=== PATIENT | female | born 1960 | race Caucasian/White ===

== ENCOUNTER 2018-07-08 12:14 | Emergency (ER) | payer OTHER ==
[2018-07-08 12:25] VITALS: BP 146/86; PULSE 61; TEMP 98.2; BMI 36.5
--- NOTE | 2018-07-08 13:25 | PDOC ---
History of Present Illness - General Chief Complaint: Nasal Bleeding Stated Complaint: NOSEBLEED Time Seen by Provider: 07/08/18 13:13 - History of Present Illness Initial Comments: 07/08/18 13:24 58-year-old female with past medical history significant for hypertension, she' s had a subarachnoid hemorrhage in the past. She takes daily aspirin presents for evaluation of nosebleed. She states she walked into a glass your nose began to bleed. She denies headache visual changes nausea or post injury vomiting. Past History - Past Medical History Allergies/Adverse Reactions: Allergies Allergy/AdvReac Type Severity Reaction Status Date / Time Iodinated Contrast- Oral and Allergy Intermediate "TURNS Verified 07/08/18 12:25 IV Dye PURPLE ALL OVER BODY" Penicillins Allergy Mild Rash Verified 07/08/18 12:25 Home Medications: Ambulatory Orders Nefazodone HCl 200 mg PO BID #0 tablet 10/23/12 Amlodipine Besylate [Norvasc -] 5 mg PO DAILY 07/08/18 Aspirin [ASA -] 81 mg PO DAILY 07/08/18 Metoprolol Succinate [Toprol Xl] 200 mg PO DAILY 07/08/18 Rosuvastatin [Crestor -] 5 mg PO DAILY 07/08/18 COPD: No Psychiatric Problems: Yes (ANXIETY,DEPRESSION.) Other medical history: SUBARACHNOID HEM. - Surgical History Neurologic Surgery: Yes - Suicide/Smoking/Psychosocial Hx Smoking Status: No Smoking History: Never smoked Number of Cigarettes Smoked Daily: 15 'Breaking Loose' booklet given: 10/22/12 Review of Systems - Review of Systems HEENTM: Yes: Nose Pain, Nose Bleeding *Physical Exam - Vital Signs Last Vital Signs Temp Pulse Resp BP Pulse Ox 98.2 F 61 18 146/86 98 07/08/18 12:21 07/08/18 12:21 07/08/18 12:21 07/08/18 12:21 07/08/18 12:21 - Physical Exam Comments: 07/08/18 13:25 HEAD: NC/AT EYES: Conjuntiva clear EOMI Ears: Canals and TM's normal NOSE: No d/c, tried blooded naris THROAT: Moist mucous membrances, oral pharanx clear, uvula midline NECK: Supple without adenopathy CARDIAC: S1 S2 LUNGS: CTA Full and Equal breath sounds ABDOMEN: Soft NT ND MS: Full ROM in all joints without edema NEUROLOGIC: No gross sensory or motor deficits, NVID SKIN: Normal color and temperature no lesions or rashes Moderate Sedation - Procedure Monitoring Vital Signs: Procedure Monitoring Vital Signs Temperature 98.2 F 07/08/18 12:21 Pulse Rate 61 07/08/18 12:21 Respiratory Rate 18 07/08/18 12:21 Blood Pressure 146/86 07/08/18 12:21 O2 Sat by Pulse Oximetry (%) 98 07/08/18 12:21 ED Treatment Course - RADIOLOGY Radiology Studies Ordered: Category Date Time Status FACIAL BONES CT W/O CONTRAST [CT] Stat CT Scan 07/08/18 13:[address] WITHOUT CONTRAST [CT] Stat CT Scan 07/08/18 13:23 Ordered *DC/Admit/Observation/Transfer Diagnosis at time of Disposition: Contusion of nose, Nasal bleeding - Discharge Dispostion Disposition: HOME Condition at time of disposition: Stable Decision to Admit order: No - Referrals Referrals: Oscar Villanueva MD, MD [Primary Care Provider] - - Patient Instructions Printed Discharge Instructions: DI for Nose Fracture Additional Instructions: Return to the emergency room should he have any further issues. Please follow up with her primary care physician one to 2 days for further evaluation and treatment options. The radiologist's comment on her CAT scan today was that he could not exclude a nondisplaced fracture. There is no obvious fracture on CAT scan today of your nose. He had CAT scan was normal and your shunt is in place. Follow-up with your primary care physician in one to 2 days and again return to the emergency room should he require any further treatment or have any further concerns. - Post Discharge Activity
== END 2018-07-08 14:16 | disposition home or self-care (01) ==
LOC: JERFT 12:14
DX: S00.33XA Contusion of nose, initial encounter (principal); W22.09XA Striking against other stationary object, initial encounter; Y93.89 Activity, other specified; Y92.89 Other specified places as the place of occurrence of the external cause; Y99.8 Other external cause status
CPT/HCPCS: 70450-TC; 70486-TC; 99281-25

== ENCOUNTER 2018-07-13 16:00 | Emergency (ER) | payer OTHER ==
--- NOTE | 2018-07-13 16:12 | PDOC ---
Rapid Medical Evaluation Time Seen by Provider: 07/13/18 16:10 Medical Evaluation: Allergies Allergy/AdvReac Type Severity Reaction Status Date / Time Iodinated Contrast- Oral and Allergy Intermediate "TURNS Verified 07/08/18 12:25 IV Dye PURPLE ALL OVER BODY" Penicillins Allergy Mild Rash Verified 07/08/18 12:25 07/13/18 16:10 I have performed a brief in-person evaluation of this patient. The patient presents with a chief complaint of: nose bleed s/p trauma few days ago, was seen in ER at that time. last dose ASA yesterday. history of brain bleed with shunt, feels weak and tired. Pertinent physical exam findings:no bleeding now I have ordered the following:none The patient will proceed to the ED for further evaluation. Discharge Disposition - Referrals Referrals: Oscar Villanueva MD, MD [Primary Care Provider] - - Patient Instructions - Post Discharge Activity
[2018-07-13 16:14] VITALS: BP 151/81; PULSE 73; TEMP 97.9; BMI 36.4
--- NOTE | 2018-07-13 17:05 | PDOC ---
History of Present Illness - General Chief Complaint: Nasal Bleeding Stated Complaint: NOSE BLEEDS Time Seen by Provider: 07/13/18 16:10 History Source: Patient Exam Limitations: No Limitations - History of Present Illness Initial Comments: 07/13/18 17:03 58-year-old female presents to ED with intermittent right nasal passage bleeding. Patient states ran into a glass door at a department store and was seen in the ER and had a normal facial CT. Patient states he is concerned with the intermittent bleeding and denies headache, dizziness, nausea or vomiting. Patient is currently on no anticoagulation therapy and denies clotting disorders. Timing/Duration: intermittent Severity: mild Associated Symptoms: reports: denies symptoms Past History - Travel Traveled outside of the country in the last 30 days: No - Past Medical History Allergies/Adverse Reactions: Allergies Allergy/AdvReac Type Severity Reaction Status Date / Time Iodinated Contrast- Oral and Allergy Intermediate "TURNS Verified 07/13/18 16:10 IV Dye PURPLE ALL OVER BODY" Penicillins Allergy Mild Rash Verified 07/13/18 16:10 Home Medications: Ambulatory Orders Nefazodone HCl 200 mg PO BID #0 tablet 10/23/12 Amlodipine Besylate [Norvasc -] 5 mg PO DAILY 07/08/18 Aspirin [ASA -] 81 mg PO DAILY 07/08/18 Metoprolol Succinate [Toprol Xl] 200 mg PO DAILY 07/08/18 Rosuvastatin [Crestor -] 5 mg PO DAILY 07/08/18 COPD: No Psychiatric Problems: Yes (ANXIETY,DEPRESSION.) - Surgical History Neurologic Surgery: Yes (ventricular shunt) - Suicide/Smoking/Psychosocial Hx Smoking Status: No Smoking History: Never smoked Number of Cigarettes Smoked Daily: 15 'Breaking Loose' booklet given: 10/22/12 Patient Lives Alone: No Lives with/in: spouse/SO Review of Systems - Review of Systems Able to Perform ROS?: Yes Constitutional: No: Symptoms Reported HEENTM: Yes: Nose Bleeding Respiratory: No: Symptoms reported Cardiac (ROS): No: Symptoms Reported *Physical Exam - Vital Signs Last Vital Signs Temp Pulse Resp BP Pulse Ox 97.9 F 73 18 151/81 97 07/13/18 16:12 07/13/18 16:12 07/13/18 16:12 07/13/18 16:12 07/13/18 16:12 - Physical Exam General Appearance: Yes: Nourished, Appropriately Dressed. No: Apparent Distress HEENT: positive: Pharynx Normal, Other (noted small superficial laceration to the floor the right nasal passage anteriorly) Integumentary: positive: Normal Color, Warm, Moist Neurologic: positive: Motor Strength 5/5 (ambulatory) Moderate Sedation - Procedure Monitoring Vital Signs: Procedure Monitoring Vital Signs Temperature 97.9 F 07/13/18 16:12 Pulse Rate 73 07/13/18 16:12 Respiratory Rate 18 07/13/18 16:12 Blood Pressure 151/81 07/13/18 16:12 O2 Sat by Pulse Oximetry (%) 97 07/13/18 16:12 Medical Decision Making - Medical Decision Making 07/13/18 17:04 Chief complaint: Intermittent right nasal bleeding since injury 5 days prior. Exam: noted small superficial laceration to the anterior aspect of right nasal passage floor. Plan: Rhino Rocket inserted without difficulty. Patient understands discharge instructions and to return in 48 hours for removal. *DC/Admit/Observation/Transfer Diagnosis at time of Disposition: Bleeding from the nose - Discharge Dispostion Disposition: HOME Condition at time of disposition: Improved - Referrals Referrals: Oscar Villanueva MD, MD [Primary Care Provider] - - Patient Instructions Printed Discharge Instructions: DI for Nosebleed Additional Instructions: Please return here for removal in 2 days and avoid coughing, sneezing, and nose blowing. - Post Discharge Activity
== END 2018-07-13 17:18 | disposition home or self-care (01) ==
LOC: JERFT 16:00
PROC: 2Y41X5Z Packing of Nasal Region using Packing Material (ICD-10-PCS; principal; 2018-07-13)
DX: R04.0 Epistaxis (principal); W22.8XXA Striking against or struck by other objects, initial encounter; Y93.89 Activity, other specified; Y92.512 Supermarket, store or market as the place of occurrence of the external cause; Y99.8 Other external cause status; I10 Essential (primary) hypertension; F41.8 Other specified anxiety disorders; Z86.79 Personal history of other diseases of the circulatory system; Z98.2 Presence of cerebrospinal fluid drainage device
CPT/HCPCS: 99281-25

== ENCOUNTER 2018-07-14 10:23 | Emergency (ER) | payer OTHER ==
[2018-07-14 10:38] VITALS: BP 114/67; PULSE 66; TEMP 97; BMI 38.0
--- NOTE | 2018-07-14 10:44 | PDOC ---
History of Present Illness - General Chief Complaint: Nasal Bleeding Stated Complaint: REVISIT INJURY Time Seen by Provider: 07/14/18 10:41 History Source: Patient - History of Present Illness Associated Symptoms: reports: weakness Past History - Past Medical History Allergies/Adverse Reactions: Allergies Allergy/AdvReac Type Severity Reaction Status Date / Time Iodinated Contrast- Oral and Allergy Intermediate "TURNS Verified 07/14/18 10:38 IV Dye PURPLE ALL OVER BODY" Penicillins Allergy Mild Rash Verified 07/14/18 10:38 Home Medications: Ambulatory Orders Nefazodone HCl 200 mg PO BID #0 tablet 10/23/12 Amlodipine Besylate [Norvasc -] 5 mg PO DAILY 07/08/18 Aspirin [ASA -] 81 mg PO DAILY 07/08/18 Metoprolol Succinate [Toprol Xl] 200 mg PO DAILY 07/08/18 Rosuvastatin [Crestor -] 5 mg PO DAILY 07/08/18 COPD: No Psychiatric Problems: Yes (ANXIETY,DEPRESSION.) - Surgical History Neurologic Surgery: Yes (ventricular shunt) - Suicide/Smoking/Psychosocial Hx Smoking Status: No Smoking History: Never smoked Number of Cigarettes Smoked Daily: 15 'Breaking Loose' booklet given: 10/22/12 Review of Systems - Review of Systems Constitutional: No: Fever HEENTM: Yes: Nose Bleeding. No: Nose Congestion Respiratory: No: Shortness of Breath Cardiac (ROS): No: Chest Pain ABD/GI: No: Nausea, Vomiting Neurological: No: Headache, Dizziness *Physical Exam - Vital Signs Last Vital Signs Temp Pulse Resp BP Pulse Ox 97 F L 66 18 114/67 98 07/14/18 10:35 07/14/18 10:35 07/14/18 10:35 07/14/18 10:35 07/14/18 10:35 - Physical Exam Comments: 07/14/18 10:58 gustavo mildly lethargic General Appearance: Yes: Appropriately Dressed HEENT: positive: Normal Voice, Other (1 blood clot to R nares, no active bleed, oropharynx clear) Neck: positive: Supple Respiratory/Chest: positive: Lungs Clear, Normal Breath Sounds. negative: Respiratory Distress Cardiovascular: positive: Regular Rate, S1, S2 Integumentary: positive: Dry, Warm Neurologic: positive: Fully Oriented, Alert, Normal Mood/Affect Moderate Sedation - Procedure Monitoring Vital Signs: Procedure Monitoring Vital Signs Temperature 97 F L 12/29/18 10:35 Pulse Rate 66 07/14/18 10:35 Respiratory Rate 18 07/14/18 10:35 Blood Pressure 114/67 07/14/18 10:35 O2 Sat by Pulse Oximetry (%) 98 07/14/18 10:35 ED Treatment Course - LABORATORY CBC & Chemistry Diagram: 07/14/18 11:00 Medical Decision Making - Medical Decision Making 07/14/18 10:43 58-year-old female, history of HTN, on aspirin, s/p subarachnoid hemorrhage in the past, anemia, here in the ED for the third time this week for nosebleed. Patient was seen in ED initially on 07/08, with right epistaxis after walking into a class. CT facial bones was read as cannot rule out non-displaced nasal bone fractures. Patient was discharged with PMD follow-up. Patient returned to ED yesterday for intermittent right epistaxis. Superficial laceration to anterior nasal passage was seen on exam and Rhino Rocket was placed. Patient states when she went home nasal packing fell out 2 hours later and that she did have some recurrent right epistaxis that resolved at some point, but returned this a.m. Bleeding has since resolved. Patient here because she is concerned about bleeding and currently complaining of generalized weakness. See exam Recurrent R epistaxis s/p facial injury 07/08 CT facial bones w/ ? non-displaced nasal bone fractures s/p rhionorocket placement yesterday in ED after lac to nasal passageway seen on exam Packing since fell out and had recurrent bleed this am Since resolved Stable but appears slightly lethargic 1 blood clot to R nares seen on exam -will check cbc irina given h/o anemia ( no transfusion in past and not on iron) 07/14/18 12:06 CBC wnl. Pt remained stable here w/ no recurrent epistaxis. Will dc w/ nasal pressure instructions for recurrent bleed and to return to ED as needed. Pt given referral for ENT follow-up. Patient to also discuss with PMD given current aspirin use *DC/Admit/Observation/Transfer Diagnosis at time of Disposition: Epistaxis - Discharge Dispostion Disposition: HOME Condition at time of disposition: Improved - Referrals Referrals: Oscar Villanueva MD, MD [Primary Care Provider] - Shon Argueta MD [Staff Physician] - - Patient Instructions Printed Discharge Instructions: Nosebleed Additional Instructions: Your blood work here was normal. If bleeding reoccurs at home, apply nasal pressure as demonstrated in ED and follow-up with Dr. Argueta of ENT next week. If you're not able to stop bleeding at home, return to the ER - Post Discharge Activity
[2018-07-14 11:13] LABS: BASO % 0.4 % (0-2.0); EOS % 1.8 % (0-4.5); HEMATOCRIT 36.5 % (32.4-45.2); HEMOGLOBIN 12.8 GM/dL (10.7-15.3); LYMPH % 25.3 % (8-40); MCHC 35.2 g/dl (32.0-36.0); MEAN CELL VOLUME 85.3 fl (80-96); MEAN PLT VOLUME 11.3 fl (7.5-11.1); MONO % 6.2 % (3.8-10.2); NEUT % 66.3 % (42.8-82.8); PLATELET COUNT 199 K/MM3 (134-434); RBC 4.28 M/mm3 (3.60-5.2); RDW 13.6 % (11.6-15.6); WHITE BLOOD COUNT 6.4 K/mm3 (4.0-10.0)
== END 2018-07-14 12:09 | disposition home or self-care (01) ==
LOC: JERFT 10:23
DX: R04.0 Epistaxis (principal); I10 Essential (primary) hypertension; Z79.82 Long term (current) use of aspirin; D64.9 Anemia, unspecified; Z86.79 Personal history of other diseases of the circulatory system; Z98.2 Presence of cerebrospinal fluid drainage device; W22.8XXD Striking against or struck by other objects, subsequent encounter
CPT/HCPCS: 36415; 85025; 99281-25

== ENCOUNTER 2020-10-05 14:23 | Emergency (ER) | payer OTHER ==
[2020-10-05 15:15] VITALS: BP 127/81; PULSE 75; TEMP 99.3; BMI 39.5
== END 2020-10-05 16:41 | disposition home or self-care (01) ==
LOC: JER 14:23
DX: J30.1 Allergic rhinitis due to pollen (principal); Z11.52 Encounter for screening for COVID-19
CPT/HCPCS: 99283-25; C9803; U0003